=== PATIENT | female | born 1950 | race Caucasian/White ===

== ENCOUNTER 2020-04-20 18:37 | Emergency (ER) | payer MEDICARE, OTHER ==
[~2020-04-20] VITALS: Ht 167.6 cm; Wt 118.2 kg
[2020-04-20] MEDS ORDERED: IV NORMAL SALINE 1,000ML 1,000 ML IV ONE (19:00)
[2020-04-20] MEDS ORDERED: IOHEXOL 300 MG/ML 75 ML VIAL. IV ONE (19:00)
--- NOTE | 2020-04-20 19:21 | PHYS DOC ---
Past History Past Medical History: Diverticulitis, High Cholesterol, Hypertension, Kidney Stones Past Surgical History: Tonsillectomy Smoking: Non-smoker Alcohol Use: Occasionally Drug Use: None General Adult EDM: Chief Complaint: ABDOMINAL PAIN HPI: HPI: Patient is a 69-year-old female with a past medical history of diverticulosis and kidney stones presents with right lower quadrant abdominal pain that started around noon today. Patient says the pain has gotten worse since the onset. Patient had mild nausea twice this afternoon with no vomiting. Patient states the pain is constant and does not radiate anywhere. She rates the pain at a 8 out of 10. She has not tried taking any medications for the pain. She states that ambulation, bearing down, and deep palpation will make the pain worse and nothing makes it any better. Patient denies any dysuria, hematuria, or increased frequency of urination. Patient denies fevers but believes that she had mild chills this afternoon. Denies known exposure to COVID19. Denies trauma. Denies known sick contacts. Review of Systems: Review of Systems: Constitutional: Denies fever, reports chills Eyes: Denies redness or eye pain HENT: Denies nasal congestion or sore throat Respiratory: Denies cough or shortness of breath Cardiovascular: Denies chest pain or palpitations GI: Reports right lower quadrant abdominal pain and nausea, denies vomiting : Denies dysuria or hematuria Musculoskeletal: Denies back pain or joint pain Integument: Denies rash or skin lesions Neurologic: Denies headache, focal weakness or sensory changes Complete systems were reviewed and found to be within normal limits, except as documented in this note. Current Medications: Current Meds: Current Medications Medications (Trade) Dose Ordered Sig/Annel Start Time Stop Time Status Last Admin Dose Admin Iohexol (Omnipaque 300 Mg/ml) 75 ml 1X ONCE 04/20/20 19:00 04/20/20 19:01 UNV Sodium Chloride 1,000 ml @ 1,000 mls/hr 1X ONCE 04/20/20 19:00 04/20/20 19:59 UNV 04/20/20 19:08 1,000 MLS/HR Allergies: Allergies: Allergies Coded Allergies Type Severity Reaction Last Updated Verified No Known Drug Allergies 04/20/20 No Physical Exam: PE: Constitutional: Well developed, well nourished, no acute distress, non-toxic appearance HENT: Normocephalic, atraumatic Eyes: Conjunctiva normal, no discharge Neck: Normal range of motion, no tenderness, supple Lungs & Thorax: No respiratory distress, equal chest rise and fall Abdomen: Soft, tenderness to deep palpation on the right lower quadrant, no distention or guarding, NBS x4 Skin: Warm, dry, no erythema, no rash Back: No tenderness, no CVA tenderness Extremities: No tenderness, ROM intact, no edema Neurologic: Alert and oriented X 3, normal motor function, normal sensory function, no focal deficits noted Psychologic: Affect normal, judgment normal Current Patient Data: Vital Signs: Vital Signs Date Time Temp Pulse Resp B/P (MAP) Pulse Ox O2 Delivery O2 Flow Rate FiO2 04/20/20 18:51 98.0 93 18 100 EKG: EKG: EKG at 1858 showed normal sinus rhythm with a heart rate of 87bpm, QRS of 76, QTc of 436, no ST elevations. Radiology/Procedures: Radiology/Procedures: PROCEDURE: CT ABDOMEN PELVIS WO CONTRAST EXAM: CT Abdomen and Pelvis without IV contrast CLINICAL HISTORY: Left lower quadrant pain COMPARISON: none TECHNIQUE: Helical CT of the abdomen and pelvis was performed without the administration of IV contrast. Axial, coronal and sagittal reformatted images were generated. ---PQRS compliance statement - One or more of the following individualized dose reduction techniques were utilized for this study: 1. Automated exposure control 2. Adjustment of the mA and/or kV according to patient size 3. Use of iterative reconstruction technique--- FINDINGS: Lack of intravenous contrast limits evaluation of solid organs, vasculature, and lymph nodes. Lower chest: Linear opacities lower lobes and lingula likely scarring/atelectasis. Abdomen and pelvis: Liver and biliary system: No focal liver lesion. High density material dependently within the gallbladder likely sludge. No wall thickening or pericholecystic fluid.. No biliary ductal dilatation. Spleen: Unremarkable Pancreas: Unremarkable Adrenal glands: Unremarkable Kidneys: Right lower pole renal cyst. No renal tract calculus. No hydronephrosis or hydroureter. Lymph nodes/retroperitoneum: No abdominal or pelvic lymphadenopathy. Vessels: Aorta is normal in caliber. Bowel/Peritoneal cavity: Infiltration about the celiac trunk and SMA. There is thickening of the appendix measuring up to 1 cm with associated periappendiceal inflammatory changes, consistent with appendicitis. Appendicolith is seen at the base. Moderate colonic stool content. No small or large bowel dilatation. No bowel obstruction. Colonic diverticula are seen without evidence for acute diverticulitis. No abdominal or pelvic ascites. Lobulated appearance of the uterus likely from fibroids. Abdominal wall: Unremarkable Bladder: Unremarkable Bones: No aggressive osseous lesion is seen. IMPRESSION: 1. Changes of acute appendicitis without evidence for perforation or associated loculated fluid collection. 2. Nonspecific infiltration about the celiac trunk and SMA, possibly reactive. 3. Colonic diverticula without evidence for acute diverticulitis. Electronically signed by: Vick Wells MD (04/20/2020 9:29 PM) [facility] Course & Med Decision Making: Course & Med Decision Making Pertinent Labs and Imaging studies reviewed. (See chart for details) Patient is a 69-year-old female presents with right lower quadrant abdominal pain. Labs obtained and posted to chart. WBC elevated. Lactic acid WNL. CT abd/pelvis with findings consistent for acute appendicitis. Empiric antibiotics given. Patient requiring transfer for admission with General surgery consultation. Discussed case with Dr. Ruelas (general surgery at [facility]) who is in agreement with consultation. Requests admission to hospitalist. Discussed with Dr. Pope (hospitalist at [facility]) who is in agreement with transfer for admission. Discussed findings and plan with patient, who acknowledges understanding and agreement. Frank Disclaimer: Frank Disclaimer: This electronic medical record was generated, in whole or in part, using a voice recognition dictation system. Departure Departure: Impression: Primary Impression: Acute appendicitis Qualified Codes: K35.80 - Unspecified acute appendicitis Disposition: 05 TRANSFER OTHER ([facility]- Dr. Pope accepting) Condition: GUARDED Referrals: RADHA GROSS MD (PCP) Justification of Admission: Justification of Admission: Justification of Admission Dx: Yes Comments: Acute appendicitis Critical Care Time Critical care time was 30 minutes which includes time at bedside, spent in discussion of patient's care with specialists and/or family members, with interpretation of laboratory and/or radiological studies and is exclusive of procedures. LUCAS NIELSEN DO Apr 20, 2020 19:21
[2020-04-20 19:31] LABS: BASO % 0 % (0-3); EOS % 0 % (0-3); HEMATOCRIT 42.7 % (36.0-47.0); HEMOGLOBIN 14.4 g/dL (12.0-15.5); LYMPH % 7 % (24-48); MEAN CORPUSCULAR HEMOGLOBIN 31 pg (25-35); MEAN CORPUSCULAR HGB CONC 34 g/dL (31-37); MEAN CORPUSCULAR VOLUME 91 fL (79-100); MONO # 0.9 x10^3/uL (0.0-1.1); MONO % 6 % (0-9); NEUT # 12.4 x10^3uL (1.8-7.7); NEUT % 86 % (31-73); PLATELET COUNT 269 x10^3/uL (140-400); RED BLOOD COUNT 4.69 x10^6/uL (3.50-5.40); RED CELL DISTRIBUTION WIDTH 13.9 % (11.5-14.5); WHITE BLOOD COUNT 14.4 x10^3/uL (4.0-11.0)
[2020-04-20 20:04] LABS: CALCIUM 9.5 mg/dL (8.5-10.1); CREATININE 1.2 mg/dL (0.6-1.0); GFR 44.4; POTASSIUM 4.4 mmol/L (3.5-5.1)
[2020-04-20 20:18] LABS: ALBUMIN/GLOBULIN RATIO 1.2 (1.0-1.7); TOTAL BILIRUBIN 0.7 mg/dL (0.2-1.0); TOTAL PROTEIN 7.4 g/dL (6.4-8.2)
[2020-04-20 20:56] LABS: BILIRUBIN,URINE NEG (NEG); CLARITY,URINE CLEAR; COLOR,URINE STRAW; GLUCOSE,URINE NEG (NEG); NITRITE,URINE NEG (NEG); UROBILINOGEN,URINE 0.2 mg/dL (0.2 mg/dL)
[2020-04-20 21:02] LABS: BACTERIA,URINE 0 /HPF (0-FEW); RBC,URINE 0 /HPF (0-2)
[2020-04-20 21:03] LABS: SQUAMOUS EPITHELIAL CELL,UR OCC /LPF
[2020-04-20 21:11] VITALS: BP 145/83
--- NOTE | 2020-04-20 21:32 | RAD ---
EXAM: CT Abdomen and Pelvis without IV contrast CLINICAL HISTORY: Left lower quadrant pain COMPARISON: none TECHNIQUE: Helical CT of the abdomen and pelvis was performed without the administration of IV contrast. Axial, coronal and sagittal reformatted images were generated. ---PQRS compliance statement - One or more of the following individualized dose reduction techniques were utilized for this study: 1. Automated exposure control 2. Adjustment of the mA and/or kV according to patient size 3. Use of iterative reconstruction technique--- FINDINGS: Lack of intravenous contrast limits evaluation of solid organs, vasculature, and lymph nodes. Lower chest: Linear opacities lower lobes and lingula likely scarring/atelectasis. Abdomen and pelvis: Liver and biliary system: No focal liver lesion. High density material dependently within the gallbladder likely sludge. No wall thickening or pericholecystic fluid.. No biliary ductal dilatation. Spleen: Unremarkable Pancreas: Unremarkable Adrenal glands: Unremarkable Kidneys: Right lower pole renal cyst. No renal tract calculus. No hydronephrosis or hydroureter. Lymph nodes/retroperitoneum: No abdominal or pelvic lymphadenopathy. Vessels: Aorta is normal in caliber. Bowel/Peritoneal cavity: Infiltration about the celiac trunk and SMA. There is thickening of the appendix measuring up to 1 cm with associated periappendiceal inflammatory changes, consistent with appendicitis. Appendicolith is seen at the base. Moderate colonic stool content. No small or large bowel dilatation. No bowel obstruction. Colonic diverticula are seen without evidence for acute diverticulitis. No abdominal or pelvic ascites. Lobulated appearance of the uterus likely from fibroids. Abdominal wall: Unremarkable Bladder: Unremarkable Bones: No aggressive osseous lesion is seen. IMPRESSION: 1. Changes of acute appendicitis without evidence for perforation or associated loculated fluid collection. 2. Nonspecific infiltration about the celiac trunk and SMA, possibly reactive. 3. Colonic diverticula without evidence for acute diverticulitis. Electronically signed by: Vick Wells MD (04/20/2020 9:29 PM) [facility]
[2020-04-20] MEDS ORDERED: PIPERACILLIN/TAZOBACTAM 3.375 GM in IV NORMAL SALINE 50ML 50 ML IV ONE (21:45)
[2020-04-20] MEDS ORDERED: IV NORMAL SALINE 50ML 50 ML ONE (21:49)
[2020-04-20] MEDS ORDERED: PIPERACILLIN/TAZOBACTAM 3.375 GM VIAL IV ONE (21:49)
--- NOTE | 2020-04-21 07:36 | EKG ---
[address] [address] Test Date: 2020-04-20 Test Time: 18:58:02 Pat Name: RAYMUNDO KING Department: Room: Gender: F Manager Policy: JIMY : 1950 Requested By: LUCAS NIELSEN Order Number: [id number] Reading MD: Measurements Intervals [place] Rate: 87 P: 42 NH: 156 QRS: 45 QRSD: 76 T: 21 QT: 362 QTc: 436 Interpretive Statements SINUS RHYTHM NORMAL ECG RI6.02 No previous ECG available for comparison
== END 2020-04-20 23:56 | disposition short-term general hospital (02) ==
LOC: ER 18:37
DX: K35.80 Unspecified acute appendicitis (principal); E78.00 Pure hypercholesterolemia, unspecified; I10 Essential (primary) hypertension; Z87.442 Personal history of urinary calculi
CPT/HCPCS: 36415; 74176; 80053; 81001; 82553; 83605; 83690; 83735; 84484; 85025; 85610; 85730; 93005; 96361; 96365; 96375; 99285; J2543; J3010; J7030